=== PATIENT | female | born 1975 | race African-American/Black ===

== ENCOUNTER 2016-06-21 18:25 | Inpatient (IN) | payer MEDICAID ==
[~2016-06-21] VITALS: Ht 165.1 cm; Wt 125.1 kg
[2016-06-21 18:55] LABS: Urine Bilirubin Negative (Negative); Urine Blood Negative /uL (Negative); Urine Color Yellow (Yellow); Urine Nitrite Negative (Negative); Urine RBC 1 /hpf (0 - 4); Urine Squamous Epithelial Cell FEW /hpf (<5); Urine Urobilinogen Normal (Negative); Urine pH 5.5 (5.0-8.0)
[2016-06-21 18:56] LABS: Basophils # (auto) 0 uL; Basophils % (auto) 0.3 % (0.0-2.0); DEFINITIVE VIEW TRANSMISSION; Eosinophils # (auto) 0.1 uL; Eosinophils % (auto) 0.7 % (0.0-7.0); Lymphocytes # (auto) 2.3 uL; Monocytes # (auto) 0.7 uL
[2016-06-21 18:56] LABS: Urine Glucose 4+ mg/dL (Normal); Urine Ketone 1+ (Negative)
[2016-06-21 19:00] LABS: Hematocrit 35.4 % (36.0-46.0); Hemoglobin 10.9 g/dL (12.2-16.2); Lymphocytes % (auto) 23.2 % (10.0-50.0); Mean Corpuscular Hemoglobin 23.5 pg (28.0-32.0); Mean Corpuscular Hgb Conc. 30.6 g/dL (32.0-36.0); Mean Corpuscular Volume 76.6 fL (80.0-100.0); Mean Platelet Volume 8.4 fL (7.4-10.4); Neutrophils # (auto) 6.7 uL; Neutrophils % (auto) 68.8 % (37.0-80.0); Platelet Count (auto) 497 10^3/uL (140-450); White Blood Cell 9.8 10^3/uL (4.4-10.8)
[2016-06-21 19:16] LABS: Anisocytosis Slight; Hypochromia Slight; Platelet Estimate Increased
[2016-06-21 19:30] LABS: Albumin 3.7 g/dL (3.4-5.0); BUN/Creatinine Ratio 16.7; Bilirubin, Total 0.1 mg/dL (0.2-1.0); Calcium 9.2 mg/dL (8.5-10.1); Potassium 3.8 mmol/L (3.5-5.1); Total Protein 8.4 g/dL (6.4-8.2)
[2016-06-22] MEDS ORDERED: SODIUM CHLORIDE 0.9% 1,000 ML IV ONE ×3 (02:00→07:15)
[2016-06-22] MEDS ORDERED: InsuLIN REG 1unit/0.01ml Soln (100units/ml) IV ONE ×3 (02:30→07:45)
[2016-06-22] MEDS ORDERED: FLUCONAZOLE 100 MG TAB PO ONE ×2 (11:45→12:14)
[2016-06-22] MEDS ORDERED: ONDANSETRON HCL 4 MG/2 ML VIAL IV PRN (11:45)
[2016-06-22] MEDS ORDERED: cloNIDine HCL 0.1 MG TAB PO PRN (11:45)
[2016-06-22] MEDS ORDERED: NITROGLYCERIN 0.4 MG SL TAB SL PRN (11:45)
[2016-06-22] MEDS ORDERED: HYDROcodone-ACET 5/325MG TAB PO PRN (11:45)
[2016-06-22] MEDS ORDERED: DOCUSATE SOD 100 MG CAP PO PRN (11:45)
[2016-06-22] MEDS ORDERED: MORPHINE SULF INJ 2 MG/ML SYRINGE 1ML IV PRN ×2 (11:45)
[2016-06-22] MEDS ORDERED: DEXTROSE (50%) 50ML SYRG IV PRN (11:45)
[2016-06-22] MEDS ORDERED: TEMAZEPAM 15 MG CAP PO PRN (11:45)
[2016-06-22] MEDS ORDERED: ACETAMINOPHEN 325 MG TAB PO PRN (11:45)
[2016-06-22] MEDS ORDERED: ACCU-CHEK COMFORT CURVE STRIP VI ONE (12:30)
[2016-06-22] MEDS: ACCU-CHEK COMFORT CURVE STRIP VI SCH ×3 (12:52→22:00)
[2016-06-22] MEDS: InsuLIN REG 1unit/0.01ml Soln (100units/ml) SC SCH ×2 (13:05→17:00)
[2016-06-22] MEDS: buPROPion HCL 75 MG TAB PO SCH ×2 (14:13→22:20)
[2016-06-22] MEDS: SODIUM CHLOR 0.9% PF (SALINE LOCK) 10ML VIAL IV SCH ×2 (14:13→22:20)
[2016-06-22 14:19] VITALS: BP 133/88
[2016-06-22 17:00] VITALS: BP 135/72
[2016-06-22] MEDS ORDERED: ACCU-CHEK COMFORT CURVE STRIP VI SCH (17:00)
[2016-06-22] MEDS: metFORMIN HYDROCHLORIDE 500 MG TAB PO SCH (18:01)
[2016-06-22] MEDS: glipiZIDE 5 MG TAB PO SCH (18:01)
[2016-06-22] MEDS ORDERED: LISI-646 PO (19:00)
[2016-06-22] MEDS ORDERED: AMLO5TAB2 PO (19:00)
[2016-06-22] MEDS ORDERED: MIRT30TA PO (19:00)
[2016-06-22] MEDS ORDERED: BUPR-40 PO (19:00)
[2016-06-22] MEDS ORDERED: GLIP-116 PO (19:00)
[2016-06-22] MEDS ORDERED: SIMV-13 PO (19:00)
[2016-06-22] MEDS ORDERED: METF-312 PO (19:00)
[2016-06-22] MEDS ORDERED: DOCU-94 PO (19:00)
[2016-06-22] MEDS ORDERED: GABA300C8 PO (19:00)
[2016-06-22] MEDS ORDERED: LURA20TA PO (19:00)
[2016-06-22 22:00] VITALS: BP 115/67
[2016-06-22] MEDS: LATUDA PO SCH (22:00)
[2016-06-22] MEDS ORDERED: MIRTAZAPINE 30 MG TAB PO SCH (22:00)
[2016-06-22] MEDS ORDERED: ATORVASTATIN 20 MG TAB PO SCH (22:00)
[2016-06-22] MEDS ORDERED: InsuLIN REG 1unit/0.01ml Soln (100units/ml) SC SCH (22:00)
[2016-06-22] MEDS: GABAPENTIN 300 MG CAP PO SCH (22:20)
[2016-06-23 05:00] VITALS: BP 126/78
[2016-06-23 06:22] LABS: Basophils # (auto) 0 uL; Basophils % (auto) 0.3 % (0.0-2.0); DEFINITIVE VIEW TRANSMISSION; Eosinophils # (auto) 0.1 uL; Eosinophils % (auto) 1.2 % (0.0-7.0); Hematocrit 28.9 % (36.0-46.0); Hemoglobin 9.3 g/dL (12.2-16.2); Lymphocytes # (auto) 1.9 uL; Lymphocytes % (auto) 25.6 % (10.0-50.0); Mean Corpuscular Hemoglobin 24.5 pg (28.0-32.0); Mean Corpuscular Hgb Conc. 32.3 g/dL (32.0-36.0); Mean Corpuscular Volume 76.1 fL (80.0-100.0); Mean Platelet Volume 7.8 fL (7.4-10.4); Monocytes # (auto) 0.6 uL; Monocytes % (auto) 8.4 % (0.0-12.0); Neutrophils # (auto) 4.7 uL; Neutrophils % (auto) 64.5 % (37.0-80.0); Platelet Count (auto) 426 10^3/uL (140-450); Red Cell Distribution Width 19.7 % (11.6-16.0); White Blood Cell 7.3 10^3/uL (4.4-10.8)
[2016-06-23] MEDS: SODIUM CHLOR 0.9% PF (SALINE LOCK) 10ML VIAL IV SCH ×2 (06:32→14:13)
[2016-06-23] MEDS: buPROPion HCL 75 MG TAB PO SCH ×2 (06:33→14:13)
[2016-06-23] MEDS: glipiZIDE 5 MG TAB PO SCH ×2 (06:35→18:00)
[2016-06-23] MEDS: ACCU-CHEK COMFORT CURVE STRIP VI SCH ×3 (06:37→17:00)
[2016-06-23] MEDS: InsuLIN REG 1unit/0.01ml Soln (100units/ml) SC SCH ×3 (06:43→17:00)
[2016-06-23 06:57] LABS: BUN/Creatinine Ratio 14.3; Bilirubin, Total 0.2 mg/dL (0.2-1.0); Calcium 8.2 mg/dL (8.5-10.1); Potassium 3.8 mmol/L (3.5-5.1); Total Protein 6.9 g/dL (6.4-8.2)
[2016-06-23] MEDS: metFORMIN HYDROCHLORIDE 500 MG TAB PO SCH ×2 (07:56→18:00)
[2016-06-23 09:15] VITALS: BP 120/76
[2016-06-23] MEDS: GABAPENTIN 300 MG CAP PO SCH (09:58)
[2016-06-23] MEDS: LATUDA PO SCH (10:00)
[2016-06-23] MEDS ORDERED: amLODIPine BESYLATE 5 MG TAB PO SCH (10:00)
[2016-06-23] MEDS ORDERED: LISINOPRIL 20 MG TAB PO SCH (10:00)
[2016-06-23] MEDS ORDERED: MULTIPLE VITAMIN TAB PO SCH (10:00)
[2016-06-23 11:31] LABS: Cholesterol 146 mg/dL (<200); HDL Cholesterol 35 mg/dL (40-59); LDL Cholesterol 96 mg/dL (<100); Triglycerides 148 mg/dL (<150)
[2016-06-23 13:13] VITALS: BP 172/97
[2016-06-23] MEDS ORDERED: SITA100T7 PO (14:51)
[2016-06-23 16:36] VITALS: BP 109/74
[2016-06-23 17:00] VITALS: BP 109/74
== END 2016-06-23 18:09 | disposition home or self-care (01) | DRG 420 ==
LOC: ER 18:27 → TELE 18:28 → ER 20:36 → TELE 06-22 00:35 → TELE-CENTR 06-22 13:35
PROVIDERS: ADMIT Internal Medicine; ATTEND Internal Medicine
DX: E11.65 Type 2 diabetes mellitus with hyperglycemia (principal); N17.0 Acute kidney failure with tubular necrosis; E11.21 Type 2 diabetes mellitus with diabetic nephropathy; B37.9 Candidiasis, unspecified; F17.210 Nicotine dependence, cigarettes, uncomplicated; I12.9 Hypertensive chronic kidney disease with stage 1 through stage 4 chronic kidney disease, or unspecified chronic kidney disease; E87.1 Hypo-osmolality and hyponatremia; D50.9 Iron deficiency anemia, unspecified; E66.01 Morbid (severe) obesity due to excess calories; E78.00 Pure hypercholesterolemia, unspecified; F32.9 Major depressive disorder, single episode, unspecified; F20.9 Schizophrenia, unspecified; E78.5 Hyperlipidemia, unspecified; F41.9 Anxiety disorder, unspecified; N18.2 Chronic kidney disease, stage 2 (mild); E11.22 Type 2 diabetes mellitus with diabetic chronic kidney disease; Z82.49 Family history of ischemic heart disease and other diseases of the circulatory system; Z68.42 Body mass index [BMI] 45.0-49.9, adult; Z83.3 Family history of diabetes mellitus; Z79.84 Long term (current) use of oral hypoglycemic drugs
CPT/HCPCS: 36415; 36600; 80053; 80061; 81001; 81025; 82010; 82805; 82962; 83036; 83540; 83550; 84443; 84702; 85025; 99291; J1815